=== PATIENT | female | born 1970 | race American Indian/Alaskan Native ===

== ENCOUNTER 2017-11-08 10:18 | Outpatient (CLI) | payer BC ==
--- NOTE | 2017-11-08 16:10 | Mammography Report ---
BILATERAL DIGITAL SCREENING MAMMOGRAM with CAD: 11/08/17 10:18:00 CLINICAL: Routine screening. COMPARISON:10/26/16 FINDINGS: The breasts are heterogeneously dense, which may obscure small masses. No mass, architectural distortion or suspicious calcifications. IMPRESSION: No mammographic evidence of malignancy. BI-RADS CATEGORY: 1 - - Negative RECOMMENDATION: Routine mammographic screening in one year. COMMENT: Patient follow-up letters are generated by our [employer] application.
== END 2017-11-08 10:19 | disposition home or self-care (01) ==
LOC: SPVWC 10:18
PROVIDERS: ATTEND Obstetrics & Gynecology
DX: Z12.31 Encounter for screening mammogram for malignant neoplasm of breast (principal); I10 Essential (primary) hypertension; E78.00 Pure hypercholesterolemia, unspecified; K21.9 Gastro-esophageal reflux disease without esophagitis
CPT/HCPCS: 77067

== ENCOUNTER 2018-11-10 08:24 | Outpatient (CLI) | payer BC ==
--- NOTE | 2018-11-10 14:32 | Mammography Report ---
BILATERAL DIGITAL SCREENING MAMMOGRAM with CAD: 11/10/18 08:24:00 CLINICAL: Routine screening. COMPARISON:11/08/17 FINDINGS: The breasts are heterogeneously dense, which may obscure small masses. A right outer focal asymmetry requires additional imaging.No architectural distortion or suspicious calcifications.The left breast is negative. IMPRESSION: Right focal asymmetry requiring further workup. BI-RADS CATEGORY: 0 -- Additional Imaging Evaluation Required RECOMMENDATION: Recall for right mediolateral and spot magnification MLO and CC views and right breast ultrasound if needed. ACR BI-RADS MAMMOGRAPHIC CODES: 0 = Needs additional imaging evaluation; 1 = Negative; 2 = Benign; 3 = Probably benign; 4 = Suspicious; 5 = Malignant; 6 = Known biopsy-proven malignancy COMMENT: 1. Dense breast tissue, i.e., adenosis, fibrocystic changes, etc., may obscure an underlying neoplasm. 2. Approximately 10% of cancers are not detected with mammography. 3. A negative mammography report should not delay biopsy if a clinically suspicious mass is present. COMMENT: Patient follow-up letters are generated via our [employer] application.
== END 2018-11-10 08:25 | disposition home or self-care (01) ==
LOC: SPVWC 08:24
PROVIDERS: ATTEND Family Medicine
DX: Z12.31 Encounter for screening mammogram for malignant neoplasm of breast (principal)
CPT/HCPCS: 77067

== ENCOUNTER 2019-06-07 08:17 | Outpatient (CLI) | payer BC ==
--- NOTE | 2019-06-07 09:42 | Mammography Report ---
RIGHT DIGITAL DIAGNOSTIC MAMMOGRAM WITH CAD 06/07/2019 RIGHT LIMITED BREAST ULTRASOUND INDICATION: Abnormal screening mammogram from 11/10/2018 TECHNIQUE: Digital right mammographic imaging was performed. Spot compression views were obtained. L imited ultrasound was performed. This examination was interpreted with the benefit of Computer-Aided Detection (CAD) analysis. COMPARISON: Mammogram from 11/10/2018 FINDINGS: Breast Density: The breasts are heterogeneously dense, which may obscure small masses. There is a 6 mm round mass in the subareolar right breast, at 9:00. This mass has slightly irregular borders and should be further evaluated with ultrasound. Ultrasound Findings: Targeted ultrasound evaluation was performed of the area of interest. There is a round hypoechoic mass measuring 7 x 5 mm, 2 cm from the nipple, at 9:00, with slightly irregular b orders. This mass does correlate with mammographic findings. Ultrasound-guided biopsy will be recomme nded for definitive evaluation. IMPRESSION: 7 mm hypoechoic mass in the right subareolar breast at 9:00. Recommend ultrasound-guided biopsy for further evaluation. These results were discussed with the patient. BI-RADS Category 4: Suspicious for Malignancy. A "normal" or negative report should not discourage follow up or biopsy of a clinically significant f inding. A written summary of these findings will be mailed to the patient. The patient will be entered into a mammography reporting system which will generate a reminder letter for the patient's next appointmen t at the appropriate interval. FURTHER INFORMATION: According to the [employer], yearly mammograms are recommend ed starting at age 40 and continuing as long as a woman is in good health. Breast MRI is recommended for women with an approximately 20-25% or greater lifetime risk of breast cancer, including women wi th a strong family history of breast or ovarian cancer and women who have been treated for Hodgkin's disease. Signer Name: Inés Melo MD Signed: 06/07/2019 9:38 AM Workstation Name: [id number]
== END 2019-06-07 08:18 | disposition home or self-care (01) ==
LOC: SPVWC 08:17
PROVIDERS: ATTEND Family Medicine
DX: N63.41 Unspecified lump in right breast, subareolar (principal); E78.00 Pure hypercholesterolemia, unspecified; K21.9 Gastro-esophageal reflux disease without esophagitis; I10 Essential (primary) hypertension

== ENCOUNTER 2019-06-18 09:01 | Outpatient (CLI) | payer BC ==
--- NOTE | 2019-06-18 13:34 | Ultrasound Report ---
ULTRASOUND-GUIDED NEEDLE CORE BIOPSY RIGHT BREAST WITH CLIP PLACEMENT CLINICAL: A suspicious mass at 9:00 2 cm from the nipple. COMPARISON: 06/07/2019 FINDINGS: The procedure was explained to the patient and informed consent was obtained. Ultrasound demonstrated the previously identified shadowing lesion at 9:00 2 cm from the nipple.. I marked the breast with a felt tip marker and a timeout was called. The skin was prepped with Chloro -Prep and anesthetized with 1% lidocaine. Needle core biopsy was performed through small dermatotomy using ultrasound guidance, 2% lidocaine wi th epinephrine for deep anesthesia and a 14-gauge Achieve biopsy device. 3 cores were obtained and pl aced in formalin. The lesion became less conspicuous with the biopsy. A clip was deployed the biopsy site. The patient tolerated the procedure well and there were no apparent convocations. Hemostasis was achi eved with minimal effort and a sterile dressing was applied. A post procedure mammogram demonstrated concordant clip deployment. She left the department in good c ondition and was given instructions for wound care and follow-up. IMPRESSION: Uncomplicated ultrasound guided needle core biopsy with clip placement right breast. Signer Name: Alek Graves MD Signed: 06/18/2019 1:29 PM Workstation Name: [id number]
--- NOTE | 2019-06-18 13:38 | Mammography Report ---
RIGHT DIGITAL DIAGNOSTIC CLINICAL: For clip placement after ultrasound-guided needle biopsy. COMPARISON: 06/07/2019 FINDINGS: The breast is heterogeneously dense, which may obscure small masses. A biopsy clip at 9:00 correlates with the biopsy site. IMPRESSION: Concordant clip deployment. Signer Name: Alek Graves MD Signed: 06/18/2019 1:33 PM Workstation Name: [id number]
== END 2019-06-18 09:02 | disposition home or self-care (01) ==
LOC: SPVWC 09:01
PROVIDERS: ATTEND Family Medicine
DX: N60.81 Other benign mammary dysplasias of right breast (principal); D64.9 Anemia, unspecified; I20.8 Other forms of angina pectoris; I10 Essential (primary) hypertension; K21.9 Gastro-esophageal reflux disease without esophagitis; E78.00 Pure hypercholesterolemia, unspecified; F41.9 Anxiety disorder, unspecified; Z79.899 Other long term (current) drug therapy; Z90.711 Acquired absence of uterus with remaining cervical stump; Z98.890 Other specified postprocedural states
CPT/HCPCS: 88305; 88341; 88342

== ENCOUNTER 2020-11-11 08:49 | Outpatient (CLI) | payer BC ==
--- NOTE | 2020-11-11 09:52 | Mammography Report ---
DIGITAL SCREENING MAMMOGRAM WITH CAD, 11/11/2020 CLINICAL INFORMATION / INDICATION: Routine screening mammography. TECHNIQUE: Digital bilateral 2D mammography was obtained in the craniocaudal and mediolateral obliqu e projections. This examination was interpreted with the benefit of Computer-Aided Detection analysis . COMPARISON: 06/18/2019, 06/07/2019, 6 11/10/2018, 11/08/2017 FINDINGS: Breast Density: There are scattered areas of fibroglandular density. There is a new nodular density in the upper outer left breast middle depth measuring up to 8 mm. No o ther significant abnormality of the left breast. A previously biopsied 9:00 anterior depth right breast nodule is unchanged. No other significant abno rmality of the right breast. IMPRESSION: Indeterminate left breast nodular density as above. A left breast ultrasound is recommend ed for further evaluation. Follow up recommendation: Ultrasound BI-RADS Category 0: Incomplete. Needs additional imaging evaluation and/or prior mammograms for ade rison. A "normal" or negative report should not discourage follow up or biopsy of a clinically significant f inding. A written summary of these findings will be mailed to the patient. The patient will be entered into a mammography reporting system which will generate a reminder letter for the patient's next appointmen t at the appropriate interval. The [employer] recommends yearly mammograms starting at age 40 and continuing as l estephanie as a woman is in good health. Breast MRI is recommended for women with an approximate 20-25% or greater lifetime risk of breast cancer, including women with a strong family history of breast or ova erick cancer or who have been treated for Hodgkin's disease. Signer Name: Ovidio Hernández MD Signed: 11/11/2020 9:47 AM Workstation Name: [email or web address]
== END 2020-11-11 08:50 | disposition home or self-care (01) ==
LOC: SPVWC 08:49
PROVIDERS: ATTEND Family Medicine
DX: Z12.31 Encounter for screening mammogram for malignant neoplasm of breast (principal)
CPT/HCPCS: 77067

== ENCOUNTER 2021-01-13 08:07 | Outpatient (CLI) | payer BC ==
--- NOTE | 2021-01-13 10:22 | Ultrasound Report ---
LEFT DIGITAL DIAGNOSTIC MAMMOGRAM WITH CAD , 01/13/2021 LEFT LIMITED BREAST ULTRASOUND CLINICAL INFORMATION / INDICATION: -Abn Mammo TECHNIQUE: Digital left mammographic imaging was performed. Spot compression views were obtained. Nash it ultrasound was performed. This examination was interpreted with the benefit of Computer-Aided De tection (CAD) analysis. COMPARISON: Prior mammograms including 11/11/2020 dating back through 09/23/2014 FINDINGS: Breast Density: There are scattered areas of fibroglandular density. MAMMOGRAPHIC FINDINGS: The nodular density seen in the upper outer quadrant of the left breast on rec ent screening mammogram has an appearance most suggestive of a benign intramammary node or possible f ibroadenoma. This nodular density/mass appears to have been present on older mammograms although is m uch more difficult to clearly identify on older mammograms. ULTRASOUND FINDINGS: Targeted ultrasound evaluation was performed of the area of interest. Sonograp hic evaluation demonstrates a solid oval mass in the 3:00 position, 2 cm from nipple, measuring 8 x 3 mm. This does correlate with the approximate location and size of nodular density/mass seen on mammo gram. IMPRESSION: Probably benign mass left breast, 3:00. Overall, the mass is most suggestive of a benign fibroadenoma or intramammary lymph node. I would recommend follow-up left mammogram in 6 months to es tablish stability. Follow up recommendation: Short term follow up in 6 months. BI-RADS Category 3: Probably Benign. Followup in 6 months. A "normal" or negative report should not discourage follow up or biopsy of a clinically significant f inding. A written summary of these findings will be mailed to the patient. The patient will be entered into a mammography reporting system which will generate a reminder letter for the patient's next appointmen t at the appropriate interval. According to the [employer], yearly mammograms are recommended starting at age 40 and continuing as long as a woman is in good health. Breast MRI is recommended for women with an ceci roximately 20-25% or greater lifetime risk of breast cancer, including women with a strong family his tory of breast or ovarian cancer and women who have been treated for Hodgkin's disease. Signer Name: Inés Melo MD Signed: 01/13/2021 10:17 AM Workstation Name: [id number]
== END 2021-01-13 08:08 | disposition home or self-care (01) ==
LOC: SPVWC 08:07
PROVIDERS: ATTEND Obstetrics & Gynecology
DX: R92.8 Other abnormal and inconclusive findings on diagnostic imaging of breast (principal)

== ENCOUNTER 2022-06-02 08:43 | Outpatient (CLI) | payer BC | END 2022-06-02 08:44 | disposition home or self-care (01) | LOC: SPVWC 08:43 | PROVIDERS: ATTEND Family Medicine | DX: Z12.31 Encounter for screening mammogram for malignant neoplasm of breast (principal) | CPT/HCPCS: 77067 ==